=== PATIENT | female | born 1980 | race Caucasian/White ===

== ENCOUNTER 2016-10-28 13:30 | Emergency (ER) | payer MEDICAID ==
[~2016-10-28] VITALS: Ht 157.5 cm; Wt 79.0 kg
[~2016-10-28 13:30] MED LIST: CEPH500C PO; SULF1TAB31 PO
[2016-10-28 13:34] VITALS: Ht 157.5 cm; Wt 79.0 kg
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
[2016-10-28] MEDS ORDERED: IBUP-1542 PO (18:21)
--- NOTE | 2016-10-28 18:22 | RADRPT ---
PROCEDURE: Left hand series CLINICAL INDICATION: Left hand pain TECHNIQUE: AP, oblique and lateral views COMPARISON: None available FINDINGS: An acute, closed, comminuted fracture of the base of the left fifth distal phalanx with intra-articu lar extension. No dislocation is present. Soft tissue swelling is present of the left fifth distal d igit. No radiodense foreign bodies are present. Normal bone mineralization and joint spaces are note d other than mild joint space narrowing of the left fifth distal interphalangeal joint. IMPRESSION: 1. Acute, closed, comminuted and intra-articular fracture of the base of the fifth distal phalanx. 2. No evidence for dislocation 3. Soft tissue swelling in the distal left fifth digit. RPTAT: HDC .Debi Delgado MD, Date Time Electronically viewed and signed by .Debi Delgado MD, on 10/28/2016 18:21 .C/
[2016-10-28 18:48] VITALS: BP 119/79; PULSE 96; RESP 18; TEMP 97.5
== END 2016-10-28 18:50 | disposition home or self-care (01) ==
LOC: FTE 13:30
DX: S62.637A Displaced fracture of distal phalanx of left little finger, initial encounter for closed fracture (principal); X58.XXXA Exposure to other specified factors, initial encounter; Y92.9 Unspecified place or not applicable
CPT/HCPCS: 29130; 73130; Z7502